=== PATIENT | female | born 1975 | race Caucasian/White ===

== ENCOUNTER 2016-12-20 13:46 | Emergency (ER) | payer OTHER ==
--- NOTE | 2016-12-20 13:59 | ED GENERAL ADULT ---
History of Present Illness General Chief Complaint: General Adult Stated Complaint: GENERAL WEAKNESS; Source: patient Exam Limitations: no limitations Vital Signs & Intake/Output Vital Signs & Intake/Output Vital Signs Date Time Temp Pulse Resp B/P Pulse O2 O2 Flow FiO2 Ox Delivery Rate 12/20 1451 100 Room Air 12/20 1354 97.0 98 20 141/85 99 Room Air Allergies Coded Allergies: No Known Allergies (12/20/16) Reconcile Medications Albuterol Sulfate (Proventil Hfa) 90 MCG HFA.AER.AD 2 PUF INH Q4 REACTIVE AIRWAY DISEASE Azithromycin (Zithromax) 250 MG TABLET 1 DP PO AD BRONCHITIS 2 the first day followed by 1 for days 2-5 Prednisone 20 MG TABLET 1 TAB PO BID REACTIVE AIRWAY DISEASE Triage Nurses Notes Reviewed? yes Onset: Abrupt Duration: day(s): Timing: remote history : No Patient currently breastfeeds: No HPI: 3 PM 41-year-old female presents to the emergency department complaining of weakness and shortness of breath. According to the patient she was in her usual state of health until last night. She said she worked an extremely long day yesterday and was tired last night, this morning however she woke up and she felt weak and short of breath. She felt so weak that she needed to lie down on the floor. The onset of the symptoms were abrupt, the duration was just today, the severity is significant as her symptoms required her to come to the emergency department for care. She denies cough fever chest pain or other complaints Past History Travel History Traveled to [place] past 21 day No Medical History Any Pertinent Medical History? see below for history Neurological: NONE EENT: NONE Musculoskeletal: SCIOLOSIS Surgical History Surgical History: scoliosis surgery Psychosocial History What is your primary language Indonesian Tobacco Use: Never used Family History Hx Contributory? No Review of Systems Review of Systems Constitutional: Reports: diaphoresis. Denies: fever. EENTM: Denies: visual changes. Respiratory: Reports: short of breath. Denies: cough. Cardiovascular: Denies: chest pain. GI: Denies: abdominal pain. Genitourinary: Reports: no symptoms. Musculoskeletal: Reports: no symptoms. Skin: Denies: rash. Neurological/Psychological: Reports: no symptoms. Hematologic/Endocrine: Reports: no symptoms. Immunologic/Allergic: Reports: no symptoms. Physical Exam Physical Exam General Appearance: well developed/nourished, alert, awake, anxious, mild distress Head: atraumatic, normal appearance Eyes: Bilateral: normal appearance, PERRL, EOMI. Ears, Nose, Throat: normal pharynx, normal ENT inspection, hearing grossly normal Neck: normal inspection, supple, full range of motion Respiratory: no respiratory distress, decreased breath sounds Cardiovascular: regular rate/rhythm Peripheral Pulses: 4+ radial (R), 4+ radial (L) Gastrointestinal: non-tender Back: normal range of motion Extremities: normal inspection, normal range of motion Neurologic/Psych: no motor/sensory deficits, awake, alert, oriented x 3 Skin: intact, normal color, warm/dry Core Measures ACS in differential dx? No CVA/TIA Diagnosis: No Severe Sepsis Present: No Septic Shock Present: No Progress Differential Diagnoses I considered the following diagnoses in my evaluation of the patient: Reactive airway disease, bronchitis, pulmonary embolism, acute coronary syndrome, dehydration, Plan of Care: Orders Procedure Date/time Status RAPID VIRAL INFLUENZA A 12/20 145 Complete TROPONIN LEVEL 12/20 1454 Complete HUMAN BETA HCG SCREEN 12/20 1454 Complete D-DIMER 12/20 1454 Complete COMPREHENSIVE METABOLIC PANEL 12/20 1454 Complete CBC WITHOUT DIFFERENTIAL 12/20 1454 Complete EKG 12/20 145 Active URINE 12/20 1401 Complete Laboratory Tests 12/20/16 1501: Urine Test NEGATIVE 12/20/16 1458: Anion Gap 11, Estimated GFR > 60, BUN/Creatinine Ratio 16.0, Glucose 112 H, Calcium 9.7, Total Bilirubin 0.7, AST 28, ALT 45, Alkaline Phosphatase 72, Troponin I < 0.01, Total Protein 7.4, Albumin 4.5, Globulin 2.9, Albumin/ Globulin Ratio 1.6, Total Beta HCG NEGATIVE, D-Dimer 214, CBC w Diff NO MAN DIFF REQ, RBC 4.42, MCV 83.2, MCH 28.6, RDW 12.1, MPV 7.7, Gran % 71.3, Lymphocytes % 25.4, Monocytes % 2.8, Eosinophils % 0.2, Basophils % 0.3, Absolute Granulocytes 4.6, Absolute Lymphocytes 1.6, Absolute Monocytes 0.2, Absolute Eosinophils 0, Absolute Basophils 0, PUBS MCHC 34.4 Microbiology 12/20 1455 NASOPHARYN: Influenza Virus A & B Rapid Smear - COMP Initial ED EKG: NSR Departure Departure Disposition: OTHER GENERAL HOSPITAL (ACUTE) Condition: Stable Clinical Impression Primary Impression: Dyspnea and respiratory abnormalities Referrals: KAITLYNN LAM,ATIYA Tabor Departure Forms: Customer Survey General Discharge Information Prescriptions: Current Visit Scripts Azithromycin (Zithromax) 1 DP PO AD #6 TAB 2 the first day followed by 1 for days 2-5 Prednisone 1 TAB PO BID #10 TAB Albuterol Sulfate (Proventil Hfa) 2 PUF INH Q4 #1 INHAL Comments Chest x-ray, labs, EKG, troponin, d-dimer are all unremarkable. She did receive an albuterol and Atrovent nebulizer in the emergency department and got some relief. I will discharge her albuterol and a short course of prednisone. She will follow-up with her doctor on Friday or return to the emergency department if worse Critical Care Note Critical Care Note Critical Care Time: non-applicable
[2016-12-20 15:05] LABS: ABSOLUTE BASOPHIL COUNT 0 /CUMM (0.0-0.2); ABSOLUTE EOSINOPHIL COUNT 0 /CUMM (0.0-0.7); ABSOLUTE GRANULOCYTE CT 4.6 /CUMM (1.4-6.5); ABSOLUTE LYMPH COUNT 1.6 /CUMM (1.2-3.4); ABSOLUTE MONOCYTE COUNT 0.2 /CUMM (0.10-0.60); BASOPHIL % 0.3 % (0.0-2.0); EOSINOPHIL % 0.2 % (0-5); GRANULOCYTE % 71.3 % (42.2-75.2); HEMATOCRIT 36.8 % (37-47); MEAN CORPUSCULAR HGB 28.6 PG (27.0-31.0); MEAN CORPUSCULAR HGB CONC 34.4 G/DL (33.0-37.0); MEAN CORPUSCULAR VOLUME 83.2 FL (81.0-99.0); MEAN PLATELET VOLUME 7.7 FL (7.4-10.4); PLATELET COUNT 256 /CUMM (130-400); RBC DISTRIBUTION WIDTH 12.1 % (11.5-14.5); RED BLOOD CELL CT 4.42 /CUMM (4.20-5.40); WHITE BLOOD CELL COUNT 6.4 /CUMM (4.8-10.8)
--- NOTE | 2016-12-20 16:35 | RADIOLOGY REPORT ---
EXAMINATION: XR PORTABLE CHEST CLINICAL INFORMATION: Shortness of breath. COMPARISON: None TECHNIQUE: Portable AP view of the chest was obtained. FINDINGS: There is a moderate to severe scoliotic curvature with a left-sided Moreno lupe which appears intact. Portions of a right-sided Moreno lupe are also noted which appears intact. The lungs appear well expanded and clear. IMPRESSION: No acute intrathoracic process.
[2016-12-20] MEDS ORDERED: ZITHROMAX250 M2 PO (17:28)
[2016-12-20] MEDS ORDERED: PREDNISONE20 M1 PO (17:28)
[2016-12-20] MEDS ORDERED: PROVENTIL HFA6.7 GM INH (17:28)
[2016-12-20 17:31] VITALS: BP 136/63
== END 2016-12-20 17:44 | disposition short-term general hospital (02) ==
LOC: ERH 13:46
PROVIDERS: Emergency Medicine
DX: R06.00 Dyspnea, unspecified (principal)
CPT/HCPCS: 1263; 81025; 87804; 87804-59; 93005; 93010